=== PATIENT | male | born 1985 | race Two or more races ===

== ENCOUNTER 2024-03-04 16:39 | Inpatient (IN) | payer OTHER ==
[~2024-03-04] VITALS: Ht 175.3 cm; Wt 65.0 kg
[2024-03-04] MEDS ORDERED: ACET-2247 PO (18:25)
[2024-03-04] MEDS ORDERED: POLY17PO47 PO (18:25)
[2024-03-04] MEDS ORDERED: FLUT16SP NASAL (18:25)
[2024-03-04] MEDS ORDERED: AMOX-457 PO (18:25)
[2024-03-04] MEDS ORDERED: NALO4SPR NASAL (18:25)
[2024-03-04] MEDS ORDERED: FERR325T27 PO (18:25)
[2024-03-04] MEDS ORDERED: BUPR1FIL7 SL (18:25)
[2024-03-04] MEDS ORDERED: POLYETHYLENE GLYCOL 3350 17 GM PACKET PO PRN (21:00)
[2024-03-04] MEDS ORDERED: ONDANSETRON HCL 4 MG/2 ML VIAL IVP PRN (21:00)
[2024-03-04] MEDS: VANCOMYCIN 1GM/WATER(PEG/NADA) 200 ML IV ONE (21:21)
[2024-03-04] MEDS: FLUTICASONE PROPIONATE 50 MCG/SPRAY 16 GM NASAL SPRAY NASAL SCH (21:22)
[2024-03-04 21:28] LABS: BASOPHILS % (AUTO) 0.9 % (0.0-2.0); EOSINOPHILS % (AUTO) 4.1 % (1.0-6.0); HEMATOCRIT 33.9 % (41-53); LYMPHOCYTES # (AUTO) 3.2 K/uL (1.0-4.8); LYMPHOCYTES % (AUTO) 49.6 % (22.0-44.0); MEAN CORPUSCULAR HEMOGLOBIN 26.1 pg (26.0-34.0); MEAN CORPUSCULAR HGB CONC 32.4 G/dL (31.0-37.0); MEAN CORPUSCULAR VOLUME 81 fL (80-100); MONOCYTES # (AUTO) 0.6 K/uL (0.1-1.0); MONOCYTES % (AUTO) 9.5 % (2.0-9.0); NEUTROPHILS # (AUTO) 2.3 K/uL (1.8-7.7); NEUTROPHILS % (AUTO) 35.9 % (40.0-70.0); PLATELET COUNT (AUTO) 219 K/uL (150-450); RED CELL DISTRIBUTION WIDTH 16.1 % (11.5-14.5); WHITE BLOOD COUNT (AUTO) 6.4 K/uL (4.5-11.0)
[2024-03-04 21:29] LABS: ALANINE AMINOTRANSFERASE 16 U/L (12-78); ALBUMIN 3.3 g/dL (3.4-5.0); ALKALINE PHOSPHATASE 56 U/L (46-116); ASPARTATE AMINOTRANSFERASE 15 U/L (15-37); BILIRUBIN,TOTAL 0.4 mg/dL (0.1-1.0); C-REACTIVE PROTEIN QUANT 8.61 mg/dL (0.00-0.30); CALCIUM, TOTAL 8.9 mg/dL (8.8-10.5); CARBON DIOXIDE 29 mmol/L (22-29); CREATININE 0.77 mg/dL (0.60-1.30); GLOMERULAR FILTR. RATE CALC > 60 mL/min (>60); GLUCOSE,RANDOM 75 mg/dL (70-110); UREA NITROGEN, BLOOD 9 mg/dL (7-18)
[2024-03-04 21:47] LABS: ANION GAP 7 mmol/L (8-16); CHLORIDE 101 mmol/L (98-107); POTASSIUM 3.9 mmol/L (3.5-5.1); SODIUM SERUM 137 mmol/L (136-145)
[2024-03-04 21:48] LABS: ERYTHROCYTE SEDIMENTATION RATE 68 MM/HR (0-15)
[2024-03-04 21:50] LABS: RBC MORPHOLOGY COMMENT ABNORMAL RBC MORPH
[2024-03-04 23:50] VITALS: BP 117/74; PULSE 89; RESP 18; TEMP 98.4; O2SAT 99
[2024-03-05] MEDS ORDERED: SODIUM CHLORIDE 0.9% 500 ML IV ONE
[2024-03-05] MEDS: HEPARIN SODIUM,PORCINE 5,000 UNITS/ML VIAL SQ SCH (00:20)
[2024-03-05] MEDS: ACETAMINOPHEN 325 MG TABLET PO PRN (00:28)
[2024-03-05 06:46] LABS: ANION GAP 7 mmol/L (8-16); CALCIUM, TOTAL 8.6 mg/dL (8.8-10.5); CARBON DIOXIDE 27 mmol/L (22-29); CHLORIDE 103 mmol/L (98-107); CREATININE 0.61 mg/dL (0.60-1.30); GLOMERULAR FILTR. RATE CALC > 60 mL/min (>60); GLUCOSE,RANDOM 91 mg/dL (70-110); SODIUM SERUM 137 mmol/L (136-145); UREA NITROGEN, BLOOD 8 mg/dL (7-18)
[2024-03-05 06:47] LABS: BASOPHILS % (AUTO) 0.7 % (0.0-2.0); EOSINOPHILS % (AUTO) 6.4 % (1.0-6.0); HEMATOCRIT 34.7 % (41-53); LYMPHOCYTES # (AUTO) 2.2 K/uL (1.0-4.8); MEAN CORPUSCULAR HEMOGLOBIN 25.7 pg (26.0-34.0); MEAN CORPUSCULAR HGB CONC 31.7 G/dL (31.0-37.0); MEAN CORPUSCULAR VOLUME 81 fL (80-100); MONOCYTES # (AUTO) 0.5 K/uL (0.1-1.0); MONOCYTES % (AUTO) 11.5 % (2.0-9.0); NEUTROPHILS # (AUTO) 1.5 K/uL (1.8-7.7); NEUTROPHILS % (AUTO) 33.4 % (40.0-70.0); PLATELET COUNT (AUTO) 195 K/uL (150-450); RED BLOOD CELL COUNT(AUTO) 4.28 MIL/uL (4.50-5.90); RED CELL DISTRIBUTION WIDTH 16.3 % (11.5-14.5); WHITE BLOOD COUNT (AUTO) 4.6 K/uL (4.5-11.0)
[2024-03-05 07:43] VITALS: BP 100/60; PULSE 59; RESP 18; TEMP 97.6; O2SAT 99
[2024-03-05] MEDS: VANCOMYCIN 1.25 GM/WATER(PEG) 250 ML IV SCH (08:00)
[2024-03-05] MEDS: BUPRENORPHINE HCL/NALOXONE HCL 8-2 MG SUBLINGUAL TABLET SL SCH (08:57)
[2024-03-05] MEDS ORDERED: AMOX TR/POT CLAV 875 MG/125 MG TABLET PO SCH (21:00)
[2024-03-06] MEDS ORDERED: FERROUS SULFATE 325 MG EC TABLET PO SCH (09:00)
== END 2024-03-05 18:10 | disposition left against medical advice (07) | DRG 603 ==
LOC: EMS 16:39 → EDH 20:53 → 6S 23:26
PROVIDERS: ADMIT Internal Medicine; ATTEND Internal Medicine
DX: L03.116 Cellulitis of left lower limb (principal); F11.10 Opioid abuse, uncomplicated; M54.31 Sciatica, right side; Z53.21 Procedure and treatment not carried out due to patient leaving prior to being seen by health care provider; K21.9 Gastro-esophageal reflux disease without esophagitis; B19.20 Unspecified viral hepatitis C without hepatic coma; D50.9 Iron deficiency anemia, unspecified; R91.1 Solitary pulmonary nodule; F22 Delusional disorders; Z87.891 Personal history of nicotine dependence; Z86.718 Personal history of other venous thrombosis and embolism; Z91.199 Patient's noncompliance with other medical treatment and regimen due to unspecified reason
CPT/HCPCS: 80048; 80053; 83735; 85025; 85651; 86140; 87040; 93971; 99285; J1644; J7040

== ENCOUNTER 2024-03-07 16:18 | Inpatient (IN) | payer OTHER ==
[~2024-03-07] VITALS: Ht 175.3 cm; Wt 65.5 kg
[~2024-03-07 16:18] MED LIST: ACET-2247 PO; AMOX-457 PO; BUPR1FIL7 SL; FERR325T27 PO; FLUT16SP NASAL; NALO4SPR NASAL; POLY17PO47 PO
[2024-03-07] MEDS: SODIUM CHLORIDE 0.9% 1,000 ML IV ONE (17:53)
[2024-03-07] MEDS: VANCOMYCIN 1GM/WATER(PEG/NADA) 200 ML IV ONE (18:10)
[2024-03-07 18:21] LABS: BASOPHILS % (AUTO) 0.6 % (0.0-2.0); EOSINOPHILS % (AUTO) 1.2 % (1.0-6.0); HEMOGLOBIN 11.2 g/dL (13.5-17.5); LYMPHOCYTES # (AUTO) 0.9 K/uL (1.0-4.8); LYMPHOCYTES % (AUTO) 9.5 % (22.0-44.0); MEAN CORPUSCULAR HEMOGLOBIN 26.1 pg (26.0-34.0); MEAN CORPUSCULAR HGB CONC 32.9 G/dL (31.0-37.0); MEAN CORPUSCULAR VOLUME 79 fL (80-100); MONOCYTES # (AUTO) 0.2 K/uL (0.1-1.0); NEUTROPHILS # (AUTO) 7.9 K/uL (1.8-7.7); PLATELET COUNT (AUTO) 256 K/uL (150-450); RED BLOOD CELL COUNT(AUTO) 4.29 MIL/uL (4.50-5.90); RED CELL DISTRIBUTION WIDTH 16.5 % (11.5-14.5); WHITE BLOOD COUNT (AUTO) 9.1 K/uL (4.5-11.0)
[2024-03-07 18:23] LABS: ANION GAP 8 mmol/L (8-16); CALCIUM, TOTAL 8.9 mg/dL (8.8-10.5); CARBON DIOXIDE 29 mmol/L (22-29); CHLORIDE 99 mmol/L (98-107); CREATININE 0.79 mg/dL (0.60-1.30); GLOMERULAR FILTR. RATE CALC > 60 mL/min (>60); GLUCOSE,RANDOM 127 mg/dL (70-110); NEUTROPHILS % (AUTO) 86.7 % (40.0-70.0); POTASSIUM 3.6 mmol/L (3.5-5.1); SODIUM SERUM 136 mmol/L (136-145); UREA NITROGEN, BLOOD 10 mg/dL (7-18)
[2024-03-07 18:28] LABS: PH,URINE DRUG SCREEN 6.5 (5.0-8.0)
[2024-03-07 18:33] LABS: LACTIC ACID 1.3 mmol/L (0.4-2.0)
[2024-03-07 18:41] LABS: ALCOHOL, URINE DRUG SCREEN NEGATIVE (NEGATIVE); AMPHET/METH SCREEN,URINE NEGATIVE (NEGATIVE); BARBITURATE SCREEN, URINE NEGATIVE (NEGATIVE); BENZODIAZEPINES SCREEN,URINE NEGATIVE (NEGATIVE); CANNABINOID SCREEN,URINE NEGATIVE (NEGATIVE); COCAINE SCREEN,URINE NEGATIVE (NEGATIVE); METHADONE SCREEN, URINE NEGATIVE (NEGATIVE); OPIATE SCREEN,URINE NEGATIVE (NEGATIVE); PHENCYCLIDINE SCREEN,URINE NEGATIVE (NEGATIVE)
[2024-03-07] MEDS ORDERED: BISACODYL 10 MG RECTAL RECTAL SUPPOSITORY PR PRN (21:00)
[2024-03-07] MEDS ORDERED: MAGNESIUM HYDROXIDE SUSPENSION 30 ML UDCUP PO PRN (21:00)
[2024-03-07] MEDS ORDERED: ZOLPIDEM TARTRATE 5 MG TABLET PO PRN (21:00)
[2024-03-07] MEDS ORDERED: ONDANSETRON HCL 4 MG/2 ML VIAL IVP PRN (21:00)
[2024-03-07] MEDS ORDERED: POLYETHYLENE GLYCOL 3350 17 GM PACKET PO PRN (21:00)
[2024-03-07] MEDS: HYDROCODONE/ACETAMINOPHEN 5-325 MG TABLET PO PRN (21:19)
[2024-03-07 21:44] VITALS: BP 113/83; PULSE 87; RESP 20; TEMP 98.4; O2SAT 99
[2024-03-07] MEDS: DOCUSATE SODIUM 100 MG CAPSULE PO SCH (21:56)
[2024-03-07] MEDS: FLUTICASONE PROPIONATE 50 MCG/SPRAY 16 GM NASAL SPRAY NASAL SCH (23:45)
[2024-03-07] MEDS: HEPARIN SODIUM,PORCINE 5,000 UNITS/ML VIAL SQ SCH (23:45)
[2024-03-08] MEDS ORDERED: SODIUM CHLORIDE 0.9% 500 ML IV ONE (00:33)
[2024-03-08] MEDS: VANCOMYCIN 1GM/WATER(PEG/NADA) 200 ML IV SCH (00:45)
[2024-03-08 05:03] VITALS: BP 97/57; PULSE 66; RESP 18; TEMP 97.5; O2SAT 99
[2024-03-08 07:13] LABS: ANION GAP 9 mmol/L (8-16); CARBON DIOXIDE 25 mmol/L (22-29); CHLORIDE 102 mmol/L (98-107); CREATININE 0.66 mg/dL (0.60-1.30); GLOMERULAR FILTR. RATE CALC > 60 mL/min (>60); GLUCOSE,RANDOM 95 mg/dL (70-110); SODIUM SERUM 136 mmol/L (136-145); UREA NITROGEN, BLOOD 8 mg/dL (7-18)
[2024-03-08 07:23] LABS: CALCIUM, TOTAL 8.5 mg/dL (8.8-10.5)
[2024-03-08] MEDS: PANTOPRAZOLE SODIUM 40 MG DR TABLET PO SCH (08:41)
[2024-03-08] MEDS ORDERED: [UNRECOGNIZED DRUG - OTHER] SL SCH (09:00)
[2024-03-08] MEDS: SODIUM CHLORIDE 0.9% 1,000 ML IV ONE (09:30)
[2024-03-08] MEDS: BUPRENORPHINE HCL/NALOXONE HCL 8-2 MG SUBLINGUAL TABLET SL SCH (13:34)
[2024-03-08] MEDS: MORPHINE SULFATE 2 MG/ML SYRINGE IVP PRN (15:20)
[2024-03-08 18:54] LABS: LACTIC ACID 0.8 mmol/L (0.4-2.0)
[2024-03-08 19:55] VITALS: BP 112/67; PULSE 81; RESP 18; TEMP 98.2; O2SAT 100
[2024-03-09 05:34] VITALS: BP 110/46; PULSE 61; RESP 16; TEMP 97.5; O2SAT 99
[2024-03-09 08:07] VITALS: BP 94/53; PULSE 85; RESP 18; TEMP 98.1; O2SAT 99
[2024-03-09 08:37] LABS: ANION GAP 8 mmol/L (8-16); CALCIUM, TOTAL 8.4 mg/dL (8.8-10.5); CARBON DIOXIDE 24 mmol/L (22-29); CHLORIDE 104 mmol/L (98-107); CREATININE 0.73 mg/dL (0.60-1.30); GLOMERULAR FILTR. RATE CALC > 60 mL/min (>60); GLUCOSE,RANDOM 127 mg/dL (70-110); POTASSIUM 3.8 mmol/L (3.5-5.1); SODIUM SERUM 136 mmol/L (136-145); UREA NITROGEN, BLOOD 7 mg/dL (7-18)
[2024-03-09] MEDS: FERROUS SULFATE 325 MG EC TABLET PO SCH (09:00)
[2024-03-09 09:09] LABS: VANCOMYCIN,RANDOM 18.4 mcg/mL (25.0-50.0)
[2024-03-09 16:14] VITALS: BP 118/77; PULSE 75; RESP 19; TEMP 97.6; O2SAT 100
[2024-03-09 21:10] VITALS: BP 115/71; PULSE 80; RESP 18; TEMP 98; O2SAT 97
[2024-03-10 08:30] VITALS: BP 100/68; PULSE 94; RESP 20; TEMP 98.7; O2SAT 98
[2024-03-10 12:30] LABS: ANION GAP 8 mmol/L (8-16); CALCIUM, TOTAL 8.6 mg/dL (8.8-10.5); CARBON DIOXIDE 25 mmol/L (22-29); CHLORIDE 102 mmol/L (98-107); CREATININE 0.71 mg/dL (0.60-1.30); GLOMERULAR FILTR. RATE CALC > 60 mL/min (>60); GLUCOSE,RANDOM 95 mg/dL (70-110); POTASSIUM 4.5 mmol/L (3.5-5.1); SODIUM SERUM 135 mmol/L (136-145); UREA NITROGEN, BLOOD 7 mg/dL (7-18)
[2024-03-10] MEDS ORDERED: SODIUM CHLORIDE 0.9% 500 ML IV ONE (13:02)
[2024-03-10 19:35] VITALS: BP 122/79; PULSE 79; RESP 18; TEMP 98.1; O2SAT 97
[2024-03-11 05:08] LABS: HIV 1-2 SCREEN 4TH GEN W/RFLX Non Reactive (Non Reactive)
[2024-03-11 08:08] VITALS: BP 115/74; PULSE 77; RESP 18; TEMP 98.4; O2SAT 98
[2024-03-11 09:41] LABS: BASOPHILS % (AUTO) 0.7 % (0.0-2.0); EOSINOPHILS % (AUTO) 4.6 % (1.0-6.0); HEMATOCRIT 34.8 % (41-53); HEMOGLOBIN 11.3 g/dL (13.5-17.5); LYMPHOCYTES # (AUTO) 2.2 K/uL (1.0-4.8); LYMPHOCYTES % (AUTO) 45.7 % (22.0-44.0); MEAN CORPUSCULAR HEMOGLOBIN 26.3 pg (26.0-34.0); MEAN CORPUSCULAR HGB CONC 32.5 G/dL (31.0-37.0); MEAN CORPUSCULAR VOLUME 81 fL (80-100); MONOCYTES # (AUTO) 0.3 K/uL (0.1-1.0); MONOCYTES % (AUTO) 6.4 % (2.0-9.0); NEUTROPHILS # (AUTO) 2.1 K/uL (1.8-7.7); NEUTROPHILS % (AUTO) 42.6 % (40.0-70.0); PLATELET COUNT (AUTO) 314 K/uL (150-450); RED BLOOD CELL COUNT(AUTO) 4.31 MIL/uL (4.50-5.90); RED CELL DISTRIBUTION WIDTH 16.4 % (11.5-14.5); WHITE BLOOD COUNT (AUTO) 4.9 K/uL (4.5-11.0)
[2024-03-11 10:01] LABS: ANION GAP 7 mmol/L (8-16); CALCIUM, TOTAL 8.7 mg/dL (8.8-10.5); CARBON DIOXIDE 28 mmol/L (22-29); CHLORIDE 101 mmol/L (98-107); CREATININE 0.72 mg/dL (0.60-1.30); GLOMERULAR FILTR. RATE CALC > 60 mL/min (>60); GLUCOSE,RANDOM 69 mg/dL (70-110); POTASSIUM 4.4 mmol/L (3.5-5.1); SODIUM SERUM 136 mmol/L (136-145); UREA NITROGEN, BLOOD 7 mg/dL (7-18)
[2024-03-11] MEDS ORDERED: BUPR1TAB46 SL (10:26)
[2024-03-11] MEDS ORDERED: CLIN300C58 PO (10:27)
[2024-03-11] MEDS ORDERED: DOCU-385 PO (10:29)
[2024-03-11] MEDS ORDERED: BISA10SU11 PR (10:31)
[2024-03-11] MEDS ORDERED: MAGN-169 PO (10:31)
[2024-03-11] MEDS: ACETAMINOPHEN 325 MG TABLET PO PRN (13:06)
[2024-03-11 16:00] VITALS: BP 114/64; PULSE 98; RESP 18; TEMP 97.9; O2SAT 99
[2024-03-11] MEDS ORDERED: CLINDAMYCIN HCL 300 MG CAPSULE PO SCH (16:00)
== END 2024-03-11 16:36 | DRG 603 ==
LOC: EMS 16:18 → EDH 20:34 → 6S 21:28
PROVIDERS: ADMIT Internal Medicine; ATTEND Internal Medicine
DX: L03.116 Cellulitis of left lower limb (principal); F11.10 Opioid abuse, uncomplicated; M54.31 Sciatica, right side; D50.9 Iron deficiency anemia, unspecified; R91.1 Solitary pulmonary nodule; F22 Delusional disorders; B18.2 Chronic viral hepatitis C; B95.2 Enterococcus as the cause of diseases classified elsewhere; G89.4 Chronic pain syndrome; Z53.29 Procedure and treatment not carried out because of patient's decision for other reasons; K21.9 Gastro-esophageal reflux disease without esophagitis; B19.20 Unspecified viral hepatitis C without hepatic coma; Z87.891 Personal history of nicotine dependence
CPT/HCPCS: 80048; 80202; 80307; 83605; 84145; 85025; 87040; 87389; 97163; 97167; 97530; 97535; 99285; J1644; J2270; J7030; J7040